=== PATIENT | female | born 1940 | race Caucasian/White ===

== ENCOUNTER 2025-01-27 14:25 | Inpatient (IN) | payer BC ==
[2025-01-27] VITALS (18 sets, daily range): BP systolic 83–108; BP diastolic 51–66; TEMP 98.1–101.4; O2SAT 96–99
[~2025-01-27] VITALS: Ht 152.4 cm; Wt 41.7 kg
[2025-01-27] MEDS: IV NORMAL SALINE 1000 ML BAG IV ONE (14:44)
[2025-01-27] MEDS ORDERED: PIPERACILLIN/TAZOBACTAM/D5W 50 ML IV ONE ×2 (14:53→15:16)
[2025-01-27] MEDS: PIPERACILLIN SODIUM/TAZOBACTAM 3.375 G in IV DEXTROSE 5% 50 ML IV ONE (14:56)
[2025-01-27 15:00] LABS: BASOPHILS % (AUTO) 0.3 % (0.0-2.0); HEMATOCRIT 33.4 % (31.2-41.9); HEMOGLOBIN 10.8 g/dL (10.9-14.3); LYMPHOCYTES # (AUTO) 0.1 K/uL (0.8-4.8); LYMPHOCYTES % (AUTO) 0.5 % (20.5-51.5); MEAN CORPUSCULAR HEMOGLOBIN 26.3 uug (24.7-32.8); MEAN CORPUSCULAR HGB CONC 32 g/dL (32.3-35.6); MEAN CORPUSCULAR VOLUME 81.6 fL (75.5-95.3); MONOCYTES # (AUTO) 0.3 K/uL (0.1-1.30); MONOCYTES % (AUTO) 2.3 % (0.0-11.0); NEUTROPHILS # (AUTO) 11.7 K/uL (1.8-8.9); NEUTROPHILS % (AUTO) 96.9 % (38.5-71.5); PLATELET COUNT (AUTO) 232 K/uL (179-408); RED CELL DISTRIBUTION WIDTH 20.8 % (12.3-17.7)
[2025-01-27 15:25] LABS: CALCIUM 8.8 mg/dL (8.5-10.1); CARBON DIOXIDE 16 mmol/L (21-32); CHLORIDE 104 mmol/L (98-107); CREATININE 3.3 mg/dL (0.6-1.3); GLUCOSE 117 mg/dL (74-106); POTASSIUM 5.1 mmol/L (3.5-5.1); SODIUM SERUM 137 mmol/L (136-145); UREA NITROGEN, BLOOD 78 mg/dL (7-18)
[2025-01-27 15:27] LABS: DIFFERENTIAL COMMENT 1
[2025-01-27 15:37] LABS: ALANINE AMINOTRANSFERASE 228 U/L (14-59); ALBUMIN 2.5 g/dL (3.4-5.0); ALKALINE PHOSPHATASE 366 U/L (50-136); ASPARTATE AMINOTRANSFERASE 254 U/L (15-37); BILIRUBIN,DIRECT 0.7 mg/dL (0.0-0.2); BILIRUBIN,TOTAL 1.2 mg/dL (0.2-1.0); NT-PRO BNP 8796 pg/mL (0-125); TOTAL PROTEIN, SERUM 6.8 g/dL (6.4-8.2)
[2025-01-27] MEDS ORDERED: DIPH1TAB PO (15:49)
[2025-01-27] MEDS ORDERED: ESTR42.5 VG (15:49)
[2025-01-27] MEDS ORDERED: BUPR-319 PO (15:49)
[2025-01-27] MEDS ORDERED: HYDR-4077 PO (15:49)
[2025-01-27] MEDS ORDERED: ZOLP5TAB2 PO (15:49)
[2025-01-27] MEDS ORDERED: LUBI24CA5 PO (15:49)
[2025-01-27] MEDS ORDERED: LEVO175T7 PO (15:49)
[2025-01-27] MEDS ORDERED: TRAZ-182 PO (15:49)
[2025-01-27] MEDS ORDERED: TEST100V5 IM (15:49)
[2025-01-27] MEDS ORDERED: LOSA50TA39 PO (15:49)
[2025-01-27] MEDS ORDERED: FLEC50TA2 PO (15:49)
[2025-01-27] MEDS ORDERED: TEMA30CA PO (15:49)
[2025-01-27] MEDS ORDERED: METO-357 PO (15:49)
[2025-01-27] MEDS ORDERED: RIZA10TA27 PO (15:49)
[2025-01-27] MEDS ORDERED: FINA1TAB PO (15:49)
[2025-01-27] MEDS ORDERED: BUDE3CAP15 PO (15:49)
[2025-01-27] MEDS ORDERED: TAMS-3 PO (15:49)
[2025-01-27] MEDS ORDERED: GABA100C PO (15:49)
[2025-01-27] MEDS ORDERED: TRIA0.2585 PO (15:49)
[2025-01-27] MEDS ORDERED: DENO60DI SUBCUT (15:49)
[2025-01-27] MEDS ORDERED: TOPI50TA PO (15:49)
[2025-01-27] MEDS ORDERED: CELE200C PO (15:49)
[2025-01-27] MEDS ORDERED: IBUP-1957 PO (15:49)
[2025-01-27] MEDS ORDERED: ESCI5TAB PO (15:49)
[2025-01-27] MEDS ORDERED: TRIA60LO14 TP (15:49)
[2025-01-27] MEDS ORDERED: DONE5TAB34 PO (15:49)
[2025-01-27] MEDS ORDERED: EPIN0.3P3 IM (15:49)
[2025-01-27] MEDS ORDERED: CLOP75TA15 PO (15:49)
[2025-01-27] MEDS ORDERED: TADA5TAB2 PO (15:49)
[2025-01-27] MEDS ORDERED: OMEP40CA21 PO (15:49)
[2025-01-27] MEDS ORDERED: HYDR20CR3 TOP (15:49)
[2025-01-27] MEDS ORDERED: FAMO40TA7 PO (15:49)
[2025-01-27 15:51] LABS: ABG BASE EXCESS -8.4 mmol/L (-2.0-3.0); ABG HCO3 13.5 mmol/L (21.0-28.0); ABG PH 7.468 (7.350-7.450); ABG PO2 109.4 mmHg (83.0-108.0); ABG TOTAL HEMOGLOBIN 10.5 G/dL (12.0-16.0); AaDO2 98.4 mmHg; COHb 0.1 % (0.5-1.5); MetHb 0.3 % (0.0-1.5)
[2025-01-27] MEDS ORDERED: ACETAMINOPHEN 650 MG SUPP.RECT RC ONE (15:51)
[2025-01-27] MEDS: ACETAMINOPHEN 650 MG SUPP.RECT RC ONE (15:54)
[2025-01-27 16:32] LABS: *BILIRUBIN,URIN NEGATIVE (NEGATIVE); *BLOOD, URINE 3+ (NEGATIVE); *CLARITY,URINE SLIGHTLY CLOUDY (CLEAR); *COLOR,URINE YELLOW (YELLOW); *KETONES,URINE NEGATIVE (NEGATIVE); *UROBILINOGEN,URINE 0.2 E.U./dl (NORMAL); LEUKOCYTE ESTERASE ,URINE 3+ (NEGATIVE); NITRITE, URINE NEGATIVE (NEGATIVE); PH,URINE 7.5 (5.0-8.0); UGLUCOSE NEGATIVE (NEGATIVE)
[2025-01-27 16:37] LABS: *PROTEIN,URINE 3+ (NEGATIVE)
[2025-01-27] MEDS ORDERED: MAGNESIUM HYDROXIDE 30 ML LIQUID UDC PO PRN (17:00)
[2025-01-27] MEDS ORDERED: REMEDY ESSENTIAL ZINC PASTE 113 GM TP PRN (17:00)
[2025-01-27] MEDS ORDERED: ZOLPIDEM 5 MG TABLET PO PRN (17:00)
[2025-01-27] MEDS ORDERED: ONDANSETRON 4 MG/2 ML VIAL IV PRN (17:00)
[2025-01-27] MEDS ORDERED: ACETAMINOPHEN 325 MG TABLET PO PRN (17:00)
[2025-01-27] MEDS: IV NS 1000 ML 1,000 ML IV PRN (17:43)
[2025-01-27] MEDS: IV D5/ 0.9% NACL 1,000 ML IV PRN (20:12)
[2025-01-27] MEDS ORDERED: PHENYLEPHRINE IV 50 MG in IV NORMAL SALINE 245 ML IV PRN ×2 (20:15→20:30)
[2025-01-27] MEDS ORDERED: LEVALBUTEROL HCL NEB 0.63 MG/3 ML NEBU NEB PRN (20:15)
[2025-01-27] MEDS: PIPERACILLIN/TAZO 2.25 G in IV DEXTROSE 5% 50 ML IV SCH (21:12)
[2025-01-27] MEDS ORDERED: PIPERACILLIN SODIUM/TAZOBACTAM 4.5 G in IV DEXTROSE 5% 50 ML IV SCH (22:00)
[2025-01-27 22:51] LABS: LACTIC ACID 4.9 mmol/L (0.4-2.0)
[2025-01-28] VITALS (32 sets, daily range): BP systolic 82–114; BP diastolic 46–72; TEMP 97.5–100.4; O2SAT 96–99
[2025-01-28 05:06] LABS: BASOPHILS # (AUTO) 0.1 K/UL (0.0-0.2); BASOPHILS % (AUTO) 0.3 % (0.0-2.0); EOSINOPHILS % (AUTO) 0.1 % (0.0-7.0); HEMATOCRIT 25.6 % (31.2-41.9); HEMOGLOBIN 8.4 g/dL (10.9-14.3); LYMPHOCYTES % (AUTO) 10.8 % (20.5-51.5); MEAN CORPUSCULAR HEMOGLOBIN 26.2 uug (24.7-32.8); MEAN CORPUSCULAR HGB CONC 33 g/dL (32.3-35.6); MEAN CORPUSCULAR VOLUME 79.7 fL (75.5-95.3); MONOCYTES % (AUTO) 3.7 % (0.0-11.0); NEUTROPHILS # (AUTO) 23.5 K/uL (1.8-8.9); NEUTROPHILS % (AUTO) 85.1 % (38.5-71.5); PLATELET COUNT (AUTO) 200 K/uL (179-408); RED BLOOD CELL COUNT(AUTO) 3.21 MIL/uL (3.63-4.92); RED CELL DISTRIBUTION WIDTH 20.3 % (12.3-17.7); WHITE BLOOD COUNT (AUTO) 27.6 K/uL (3.8-11.8)
[2025-01-28 05:22] LABS: DIFFERENTIAL COMMENT 1
[2025-01-28 05:33] LABS: ALANINE AMINOTRANSFERASE 223 U/L (14-59); ALBUMIN 1.9 g/dL (3.4-5.0); ALKALINE PHOSPHATASE 198 U/L (50-136); ASPARTATE AMINOTRANSFERASE 154 U/L (15-37); BILIRUBIN,DIRECT 0.3 mg/dL (0.0-0.2); BILIRUBIN,TOTAL 0.6 mg/dL (0.2-1.0); CARBON DIOXIDE 16 mmol/L (21-32); CHLORIDE 109 mmol/L (98-107); CHOLESTEROL 113 mg/dL (<200); CREATININE 3.3 mg/dL (0.6-1.3); GLUCOSE 143 mg/dL (74-106); HDL CHOLESTEROL 13 mg/dL (40-60); MAGNESIUM 2.2 mg/dL (1.8-2.4); PHOSPHOROUS 3.1 mg/dL (2.5-4.9); POTASSIUM 4.6 mmol/L (3.5-5.1); SODIUM SERUM 138 mmol/L (136-145); TOTAL PROTEIN, SERUM 5.8 g/dL (6.4-8.2); TRIGLYCERIDES 352 MG/DL (30-150); UREA NITROGEN, BLOOD 78 mg/dL (7-18)
[2025-01-28 06:04] LABS: *OCCULT BLOOD STOOL NEGATIVE (NEGATIVE)
[2025-01-28] MEDS: PANTOPRAZOLE SODIUM 40 MG VIAL IV SCH (08:51)
[2025-01-28] MEDS: LORAZEPAM 2 MG/1 ML VIAL IV ONE (14:21)
[2025-01-28] MEDS: FUROSEMIDE 40 MG/4 ML VIAL IV ONE (14:34)
[2025-01-28] MEDS: MORPHINE SULFATE 2 MG/1 ML DISP.SYRIN IV PRN (15:03)
[2025-01-28 15:52] LABS: ABG BASE EXCESS -7.7 mmol/L (-2.0-3.0); ABG HCO3 15.1 mmol/L (21.0-28.0); ABG PH 7.435 (7.350-7.450); ABG PO2 93.2 mmHg (83.0-108.0); ABG SITE LEFT RADIAL; ABG TOTAL HEMOGLOBIN 10.1 G/dL (12.0-16.0); AaDO2 97.5 mmHg; COHb 0.3 % (0.5-1.5); MetHb 0.2 % (0.0-1.5)
[2025-01-28] MEDS: HEPARIN/D5W DRIP 500 ML IV PRN (16:25)
[2025-01-28] MEDS: VANCOMYCIN HCL 750 MG in IV DEXTROSE 5% 250 ML IV ONE (16:51)
[2025-01-28] MEDS ORDERED: APIX5TAB PO (17:05)
[2025-01-28] MEDS: MEROPENEM 1 G in IV NORMAL SALINE 100 ML IV SCH (17:09)
[2025-01-28] MEDS: ACETAMINOPHEN 650 MG SUPP.RECT RC PRN (17:21)
[2025-01-28] MEDS ORDERED: HEPARIN SODIUM,PORCINE 5,000 UNITS/ML VIAL IVP ONE (23:45)
[2025-01-29] VITALS (27 sets, daily range): BP systolic 84–173; BP diastolic 42–111; TEMP 97.3–98.6; O2SAT 93–100
[2025-01-29] MEDS: HEPARIN SODIUM,PORCINE 5,000 UNITS/ML VIAL IVP ONE (00:21)
[2025-01-29 06:12] LABS: BASOPHILS # (AUTO) 0.2 K/UL (0.0-0.2); BASOPHILS % (AUTO) 0.6 % (0.0-2.0); EOSINOPHILS # (AUTO) 0.2 K/uL (0.0-0.7); EOSINOPHILS % (AUTO) 0.6 % (0.0-7.0); HEMATOCRIT 26.9 % (31.2-41.9); HEMOGLOBIN 8.8 g/dL (10.9-14.3); LYMPHOCYTES # (AUTO) 0.4 K/uL (0.8-4.8); LYMPHOCYTES % (AUTO) 1.6 % (20.5-51.5); MEAN CORPUSCULAR HEMOGLOBIN 26.2 uug (24.7-32.8); MEAN CORPUSCULAR HGB CONC 33 g/dL (32.3-35.6); MONOCYTES # (AUTO) 1.5 K/uL (0.1-1.30); MONOCYTES % (AUTO) 5.3 % (0.0-11.0); NEUTROPHILS % (AUTO) 91.9 % (38.5-71.5); PLATELET COUNT (AUTO) 191 K/uL (179-408); RED BLOOD CELL COUNT(AUTO) 3.36 MIL/uL (3.63-4.92); RED CELL DISTRIBUTION WIDTH 21.3 % (12.3-17.7); WHITE BLOOD COUNT (AUTO) 28.2 K/uL (3.8-11.8)
[2025-01-29 06:15] LABS: DIFFERENTIAL COMMENT 1
[2025-01-29 06:45] LABS: CALCIUM 7.9 mg/dL (8.5-10.1); CARBON DIOXIDE 17 mmol/L (21-32); CHLORIDE 110 mmol/L (98-107); CREATININE 3.4 mg/dL (0.6-1.3); GLUCOSE 94 mg/dL (74-106); POTASSIUM 4.7 mmol/L (3.5-5.1); SODIUM SERUM 141 mmol/L (136-145); UREA NITROGEN, BLOOD 71 mg/dL (7-18); VANCOMYCIN,RANDOM 10.9 ug/mL (20.0-30.0)
[2025-01-29] MEDS: HEPARIN SODIUM,PORCINE 5,000 UNITS/ML VIAL IV ONE ×2 (07:49→13:32)
[2025-01-29] MEDS: VANCOMYCIN IV 500 MG in IV DEXTROSE 5% 100 ML IV ONE (07:55)
[2025-01-29] MEDS: MEROPENEM 500 MG in IV NORMAL SALINE 50 ML IV SCH (17:41)
[2025-01-29] MEDS ORDERED: FENTANYL CITRATE 100 MCG/2 ML AMPUL ONE (19:43)
[2025-01-29] MEDS ORDERED: MIDAZOLAM HCL 2 MG/2 ML VIAL ONE (19:43)
[2025-01-29] MEDS ORDERED: PROPOFOL 200 MG/20 ML BOTTLE ONE (20:00)
[2025-01-29] MEDS ORDERED: ROCURONIUM BROMIDE 50 MG/5 ML VIAL ONE (20:09)
[2025-01-29] MEDS ORDERED: FENTANYL CITRATE 100 MCG/2 ML AMPUL IV PRN ×2 (22:00)
[2025-01-29] MEDS ORDERED: ONDANSETRON 4 MG/2 ML VIAL IV PRN (22:00)
[2025-01-30] VITALS (24 sets, daily range): BP systolic 130–165; BP diastolic 68–104; TEMP 97.3–98.4; O2SAT 96–98
[2025-01-30 05:03] LABS: BASOPHILS # (AUTO) 0.2 K/UL (0.0-0.2); BASOPHILS % (AUTO) 1.2 % (0.0-2.0); EOSINOPHILS # (AUTO) 0.3 K/uL (0.0-0.7); EOSINOPHILS % (AUTO) 1.6 % (0.0-7.0); HEMATOCRIT 29.8 % (31.2-41.9); HEMOGLOBIN 9.6 g/dL (10.9-14.3); LYMPHOCYTES # (AUTO) 2.6 K/uL (0.8-4.8); LYMPHOCYTES % (AUTO) 15.5 % (20.5-51.5); MEAN CORPUSCULAR HEMOGLOBIN 25.9 uug (24.7-32.8); MEAN CORPUSCULAR HGB CONC 32 g/dL (32.3-35.6); MEAN CORPUSCULAR VOLUME 80.2 fL (75.5-95.3); MONOCYTES # (AUTO) 0.9 K/uL (0.1-1.30); MONOCYTES % (AUTO) 5.1 % (0.0-11.0); NEUTROPHILS % (AUTO) 76.6 % (38.5-71.5); PLATELET COUNT (AUTO) 176 K/uL (179-408); RED BLOOD CELL COUNT(AUTO) 3.72 MIL/uL (3.63-4.92); RED CELL DISTRIBUTION WIDTH 20.9 % (12.3-17.7); WHITE BLOOD COUNT (AUTO) 16.9 K/uL (3.8-11.8)
[2025-01-30 05:12] LABS: DIFFERENTIAL COMMENT 1
[2025-01-30 05:23] LABS: ALANINE AMINOTRANSFERASE 117 U/L (14-59); ALBUMIN 1.9 g/dL (3.4-5.0); ALKALINE PHOSPHATASE 153 U/L (50-136); ASPARTATE AMINOTRANSFERASE 22 U/L (15-37); BILIRUBIN,DIRECT 0.3 mg/dL (0.0-0.2); BILIRUBIN,TOTAL 0.6 mg/dL (0.2-1.0); CALCIUM 8.1 mg/dL (8.5-10.1); CARBON DIOXIDE 20 mmol/L (21-32); CHLORIDE 110 mmol/L (98-107); GLUCOSE 91 mg/dL (74-106); PHOSPHOROUS 3.7 mg/dL (2.5-4.9); POTASSIUM 5.1 mmol/L (3.5-5.1); SODIUM SERUM 142 mmol/L (136-145); TOTAL PROTEIN, SERUM 6.1 g/dL (6.4-8.2); UREA NITROGEN, BLOOD 68 mg/dL (7-18); VANCOMYCIN,RANDOM 15.1 ug/mL (20.0-30.0)
[2025-01-30 15:44] LABS: *OCCULT BLOOD STOOL NEGATIVE (NEGATIVE)
[2025-01-30] MEDS ORDERED: CEFTRIAXONE 2 G VIAL IM SCH (17:00)
[2025-01-30] MEDS: ARGININE/GLUTAMINE/CALCIUM BMB 1 EACH POWD.PACK PO SCH (17:11)
[2025-01-30] MEDS: CEFTRIAXONE 2 G in IV DEXTROSE 5% 100 ML IV SCH (17:40)
[2025-01-31] VITALS (10 sets, daily range): BP systolic 124–165; BP diastolic 80–98; TEMP 97.4–98.4; O2SAT 97–98
[2025-01-31] MEDS: hydrALAZINE HCL 20 MG/1 ML VIAL IV PRN (03:45)
[2025-01-31 05:02] LABS: BASOPHILS # (AUTO) 0.1 K/UL (0.0-0.2); BASOPHILS % (AUTO) 0.7 % (0.0-2.0); EOSINOPHILS # (AUTO) 0.2 K/uL (0.0-0.7); EOSINOPHILS % (AUTO) 1.7 % (0.0-7.0); HEMATOCRIT 31.7 % (31.2-41.9); HEMOGLOBIN 10.6 g/dL (10.9-14.3); LYMPHOCYTES # (AUTO) 1.5 K/uL (0.8-4.8); LYMPHOCYTES % (AUTO) 10.9 % (20.5-51.5); MEAN CORPUSCULAR HEMOGLOBIN 26.3 uug (24.7-32.8); MEAN CORPUSCULAR HGB CONC 33 g/dL (32.3-35.6); MONOCYTES # (AUTO) 0.9 K/uL (0.1-1.30); MONOCYTES % (AUTO) 6.4 % (0.0-11.0); NEUTROPHILS % (AUTO) 80.3 % (38.5-71.5); PLATELET COUNT (AUTO) 195 K/uL (179-408); RED BLOOD CELL COUNT(AUTO) 4.02 MIL/uL (3.63-4.92); RED CELL DISTRIBUTION WIDTH 20.5 % (12.3-17.7); WHITE BLOOD COUNT (AUTO) 13.7 K/uL (3.8-11.8)
[2025-01-31 05:15] LABS: DIFFERENTIAL COMMENT 1
[2025-01-31 05:20] LABS: ALANINE AMINOTRANSFERASE 93 U/L (14-59); ALBUMIN 2.2 g/dL (3.4-5.0); ALKALINE PHOSPHATASE 146 U/L (50-136); ASPARTATE AMINOTRANSFERASE 14 U/L (15-37); BILIRUBIN,DIRECT 0.3 mg/dL (0.0-0.2); BILIRUBIN,TOTAL 0.6 mg/dL (0.2-1.0); CALCIUM 8.4 mg/dL (8.5-10.1); CARBON DIOXIDE 17 mmol/L (21-32); CHLORIDE 108 mmol/L (98-107); GLUCOSE 106 mg/dL (74-106); PHOSPHOROUS 3.1 mg/dL (2.5-4.9); POTASSIUM 4.9 mmol/L (3.5-5.1); SODIUM SERUM 139 mmol/L (136-145); TOTAL PROTEIN, SERUM 6.6 g/dL (6.4-8.2); UREA NITROGEN, BLOOD 54 mg/dL (7-18)
[2025-01-31] MEDS: PANTOPRAZOLE SODIUM 40 MG TABLET.DR PO SCH (08:44)
[2025-01-31] MEDS: METOPROLOL SUCCINATE XL 50 MG TAB.SR.24H PO SCH (17:02)
[2025-01-31] MEDS: HYDROCORTISONE 2.5% CREAM 20 GM TUBE TOP PRN (17:51)
[2025-02-01] VITALS: BP 150/95; TEMP 98; O2SAT 96
[2025-02-01 04:00] VITALS: BP 130/81; TEMP 98.1; O2SAT 97
[2025-02-01 07:13] LABS: BASOPHILS # (AUTO) 0.1 K/UL (0.0-0.2); BASOPHILS % (AUTO) 0.3 % (0.0-2.0); EOSINOPHILS # (AUTO) 0.3 K/uL (0.0-0.7); EOSINOPHILS % (AUTO) 1.6 % (0.0-7.0); HEMATOCRIT 30.8 % (31.2-41.9); HEMOGLOBIN 10.2 g/dL (10.9-14.3); LYMPHOCYTES # (AUTO) 0.9 K/uL (0.8-4.8); LYMPHOCYTES % (AUTO) 4.8 % (20.5-51.5); MEAN CORPUSCULAR HEMOGLOBIN 26.4 uug (24.7-32.8); MEAN CORPUSCULAR HGB CONC 33 g/dL (32.3-35.6); MEAN CORPUSCULAR VOLUME 80.1 fL (75.5-95.3); MONOCYTES # (AUTO) 1.1 K/uL (0.1-1.30); MONOCYTES % (AUTO) 6.1 % (0.0-11.0); NEUTROPHILS % (AUTO) 87.2 % (38.5-71.5); PLATELET COUNT (AUTO) 196 K/uL (179-408); RED BLOOD CELL COUNT(AUTO) 3.85 MIL/uL (3.63-4.92); RED CELL DISTRIBUTION WIDTH 20.8 % (12.3-17.7); WHITE BLOOD COUNT (AUTO) 18.4 K/uL (3.8-11.8)
[2025-02-01 07:14] LABS: DIFFERENTIAL COMMENT 1
[2025-02-01 07:17] LABS: CALCIUM 9.1 mg/dL (8.5-10.1); CARBON DIOXIDE 19 mmol/L (21-32); CHLORIDE 108 mmol/L (98-107); CREATININE 1.9 mg/dL (0.6-1.3); GLUCOSE 102 mg/dL (74-106); POTASSIUM 4.8 mmol/L (3.5-5.1); SODIUM SERUM 140 mmol/L (136-145); UREA NITROGEN, BLOOD 60 mg/dL (7-18)
[2025-02-01 07:52] VITALS: BP 138/88; TEMP 97.6; O2SAT 97
[2025-02-01 08:24] LABS: MAGNESIUM 1.8 mg/dL (1.8-2.4); PHOSPHOROUS 3.9 mg/dL (2.5-4.9)
[2025-02-01 11:47] VITALS: BP 115/75; TEMP 97.7; O2SAT 97
[2025-02-01 16:21] VITALS: BP 121/76; TEMP 97.8; O2SAT 96
[2025-02-01] MEDS ORDERED: ACETAMINOPHEN 325 MG TABLET PO PRN (18:30)
[2025-02-01 20:20] VITALS: BP 110/66; TEMP 97.9; O2SAT 95
[2025-02-02 04:54] VITALS: BP_SYST 132; BP_SYST 147; BP_DIAS 70; BP_DIAS 85; TEMP 97.5; TEMP 99.4; O2SAT 92; O2SAT 97
[2025-02-02 07:21] LABS: BASOPHILS # (AUTO) 0.1 K/UL (0.0-0.2); BASOPHILS % (AUTO) 0.5 % (0.0-2.0); EOSINOPHILS # (AUTO) 0.3 K/uL (0.0-0.7); EOSINOPHILS % (AUTO) 2.1 % (0.0-7.0); HEMATOCRIT 31.3 % (31.2-41.9); HEMOGLOBIN 10.3 g/dL (10.9-14.3); LYMPHOCYTES # (AUTO) 1.2 K/uL (0.8-4.8); LYMPHOCYTES % (AUTO) 8.6 % (20.5-51.5); MEAN CORPUSCULAR HEMOGLOBIN 26.3 uug (24.7-32.8); MEAN CORPUSCULAR HGB CONC 33 g/dL (32.3-35.6); MEAN CORPUSCULAR VOLUME 79.9 fL (75.5-95.3); MONOCYTES # (AUTO) 0.9 K/uL (0.1-1.30); MONOCYTES % (AUTO) 6.4 % (0.0-11.0); NEUTROPHILS # (AUTO) 11.5 K/uL (1.8-8.9); NEUTROPHILS % (AUTO) 82.4 % (38.5-71.5); PLATELET COUNT (AUTO) 229 K/uL (179-408); RED BLOOD CELL COUNT(AUTO) 3.92 MIL/uL (3.63-4.92); RED CELL DISTRIBUTION WIDTH 19.9 % (12.3-17.7)
[2025-02-02 07:29] LABS: ALANINE AMINOTRANSFERASE 56 U/L (14-59); ALBUMIN 2.4 g/dL (3.4-5.0); ALKALINE PHOSPHATASE 116 U/L (50-136); ASPARTATE AMINOTRANSFERASE 13 U/L (15-37); BILIRUBIN,TOTAL 0.5 mg/dL (0.2-1.0); CALCIUM 9.1 mg/dL (8.5-10.1); CARBON DIOXIDE 20 mmol/L (21-32); CHLORIDE 108 mmol/L (98-107); CREATININE 1.9 mg/dL (0.6-1.3); GLUCOSE 107 mg/dL (74-106); MAGNESIUM 1.8 mg/dL (1.8-2.4); PHOSPHOROUS 4.6 mg/dL (2.5-4.9); POTASSIUM 4.7 mmol/L (3.5-5.1); SODIUM SERUM 140 mmol/L (136-145); TOTAL PROTEIN, SERUM 6.8 g/dL (6.4-8.2); UREA NITROGEN, BLOOD 54 mg/dL (7-18)
[2025-02-02 07:34] LABS: DIFFERENTIAL COMMENT 1
[2025-02-02 08:00] VITALS: TEMP 97.7
[2025-02-02 12:00] VITALS: TEMP 97.7
[2025-02-02 16:00] VITALS: BP 117/74; TEMP 97.8; O2SAT 96
[2025-02-02 17:58] LABS: BASOPHILS # (AUTO) 0.1 K/UL (0.0-0.2); EOSINOPHILS # (AUTO) 0.2 K/uL (0.0-0.7); EOSINOPHILS % (AUTO) 2.1 % (0.0-7.0); HEMATOCRIT 31.5 % (31.2-41.9); LYMPHOCYTES # (AUTO) 1.1 K/uL (0.8-4.8); LYMPHOCYTES % (AUTO) 9.4 % (20.5-51.5); MEAN CORPUSCULAR HEMOGLOBIN 25.8 uug (24.7-32.8); MEAN CORPUSCULAR HGB CONC 32 g/dL (32.3-35.6); MEAN CORPUSCULAR VOLUME 81.2 fL (75.5-95.3); MONOCYTES % (AUTO) 8.7 % (0.0-11.0); NEUTROPHILS # (AUTO) 8.9 K/uL (1.8-8.9); NEUTROPHILS % (AUTO) 78.8 % (38.5-71.5); PLATELET COUNT (AUTO) 246 K/uL (179-408); RED BLOOD CELL COUNT(AUTO) 3.87 MIL/uL (3.63-4.92); RED CELL DISTRIBUTION WIDTH 20.2 % (12.3-17.7); WHITE BLOOD COUNT (AUTO) 11.3 K/uL (3.8-11.8)
[2025-02-02 18:07] LABS: DIFFERENTIAL COMMENT 1
[2025-02-02 18:20] LABS: IRON, SERUM 34 ug/dL (50-175)
[2025-02-02 18:35] LABS: FERRITIN 170 ng/mL (8-252)
[2025-02-02 19:00] VITALS: BP 110/68; TEMP 97.6; O2SAT 98
[2025-02-02 19:59] LABS: BAND % (MANUAL) 1 % (0-10); EOSINOPHILS % (MANUAL) 1 % (0-8); LYMPHOCYTES % (MANUAL) 12 % (20-40); MONOCYTES % (MANUAL) 11 % (2-10); NEUTROPHILS % (MANUAL) 75 % (42-75); PLATELET ESTIMATE ADEQUATE
[2025-02-02 20:00] LABS: ANISOCYTOSIS 2+; HYPOCHROMASIA 1+
[2025-02-03] VITALS: BP 107/61; TEMP 97.6; O2SAT 97
[2025-02-03 04:00] VITALS: BP 130/81; TEMP 98.1; O2SAT 98
[2025-02-03 06:49] LABS: BASOPHILS # (AUTO) 0.1 K/UL (0.0-0.2); BASOPHILS % (AUTO) 1.1 % (0.0-2.0); EOSINOPHILS # (AUTO) 0.3 K/uL (0.0-0.7); EOSINOPHILS % (AUTO) 2.8 % (0.0-7.0); HEMATOCRIT 31.9 % (31.2-41.9); HEMOGLOBIN 10.4 g/dL (10.9-14.3); LYMPHOCYTES # (AUTO) 1.2 K/uL (0.8-4.8); MEAN CORPUSCULAR HEMOGLOBIN 26.6 uug (24.7-32.8); MEAN CORPUSCULAR HGB CONC 33 g/dL (32.3-35.6); MEAN CORPUSCULAR VOLUME 81.9 fL (75.5-95.3); MONOCYTES # (AUTO) 1.1 K/uL (0.1-1.30); MONOCYTES % (AUTO) 9.8 % (0.0-11.0); NEUTROPHILS # (AUTO) 8.9 K/uL (1.8-8.9); NEUTROPHILS % (AUTO) 76.3 % (38.5-71.5); PLATELET COUNT (AUTO) 262 K/uL (179-408); RED CELL DISTRIBUTION WIDTH 20.3 % (12.3-17.7); WHITE BLOOD COUNT (AUTO) 11.7 K/uL (3.8-11.8)
[2025-02-03 07:09] LABS: DIFFERENTIAL COMMENT 1
[2025-02-03 07:10] LABS: CALCIUM 8.4 mg/dL (8.5-10.1); CARBON DIOXIDE 21 mmol/L (21-32); CHLORIDE 106 mmol/L (98-107); CREATININE 1.8 mg/dL (0.6-1.3); GLUCOSE 103 mg/dL (74-106); MAGNESIUM 1.9 mg/dL (1.8-2.4); PHOSPHOROUS 4.4 mg/dL (2.5-4.9); POTASSIUM 4.5 mmol/L (3.5-5.1); SODIUM SERUM 138 mmol/L (136-145); UREA NITROGEN, BLOOD 49 mg/dL (7-18)
[2025-02-03 07:30] VITALS: BP 119/74; TEMP 97.7; O2SAT 99
[2025-02-03 08:46] LABS: ANISOCYTOSIS 2+; EOSINOPHILS % (MANUAL) 2 % (0-8); LYMPHOCYTES % (MANUAL) 8 % (20-40); METAMYELOCYTES % 3 % (0-1); MONOCYTES % (MANUAL) 11 % (2-10); MYELOCYTES % 2 % (0-0); NEUTROPHILS % (MANUAL) 74 % (42-75); PLATELET ESTIMATE ADEQUATE
[2025-02-03 11:30] VITALS: BP 131/71; TEMP 97.5; O2SAT 98
[2025-02-03] MEDS ORDERED: ALBUTEROL SULFATE 1.25 MG/3 ML NEBU NEB PRN (13:30)
[2025-02-03 13:48] LABS: *OCCULT BLOOD STOOL NEGATIVE (NEGATIVE)
[2025-02-03] MEDS ORDERED: CEPH500C2 PO (14:49)
[2025-02-03] MEDS ORDERED: ACID1TAB4 PO (14:49)
[2025-02-03 15:41] VITALS: BP 125/80; TEMP 97.7; O2SAT 98
== END 2025-02-03 17:00 | disposition home health service (06) | DRG 853 ==
LOC: ER 14:25 → EDBD 16:19 → CCU 16:19 → TELE3 01-31 20:05 → MEDSURG3 02-03 09:10
PROVIDERS: ADMIT Internal Medicine; ATTEND Internal Medicine
PROC: 05HC33Z Insertion of Infusion Device into Left Basilic Vein, Percutaneous Approach (ICD-10-PCS; 2025-01-29)
PROC: 0T778DZ Dilation of Left Ureter with Intraluminal Device, Via Natural or Artificial Opening Endoscopic (ICD-10-PCS; principal; 2025-01-29 20:00)
DX: A41.50 Gram-negative sepsis, unspecified (principal); G92.8 Other toxic encephalopathy; G93.41 Metabolic encephalopathy; R65.21 Severe sepsis with septic shock; N17.0 Acute kidney failure with tubular necrosis; I26.99 Other pulmonary embolism without acute cor pulmonale; I50.31 Acute diastolic (congestive) heart failure; N17.9 Acute kidney failure, unspecified; N13.6 Pyonephrosis; I47.10 Supraventricular tachycardia, unspecified; Z68.1 Body mass index [BMI] 19.9 or less, adult; D68.59 Other primary thrombophilia; R17 Unspecified jaundice; N20.0 Calculus of kidney; D64.9 Anemia, unspecified; Z87.442 Personal history of urinary calculi; Z96.643 Presence of artificial hip joint, bilateral; Z86.718 Personal history of other venous thrombosis and embolism; R62.7 Adult failure to thrive; B96.20 Unspecified Escherichia coli [E. coli] as the cause of diseases classified elsewhere; I70.0 Atherosclerosis of aorta; K57.30 Diverticulosis of large intestine without perforation or abscess without bleeding; R73.03 Prediabetes; Z74.09 Other reduced mobility; E03.9 Hypothyroidism, unspecified; Z79.890 Hormone replacement therapy; M15.9 Polyosteoarthritis, unspecified; K44.9 Diaphragmatic hernia without obstruction or gangrene; I25.10 Atherosclerotic heart disease of native coronary artery without angina pectoris; Z79.01 Long term (current) use of anticoagulants; G89.29 Other chronic pain; M51.369 Other intervertebral disc degeneration, lumbar region without mention of lumbar back pain or lower extremity pain; R74.01 Elevation of levels of liver transaminase levels; F32.A Depression, unspecified; R41.89 Other symptoms and signs involving cognitive functions and awareness; I11.0 Hypertensive heart disease with heart failure; M81.0 Age-related osteoporosis without current pathological fracture; F41.9 Anxiety disorder, unspecified; I49.1 Atrial premature depolarization
CPT/HCPCS: 36415; 36600; 71045; 74018; 82378; 82803; 83550; 83605; 83690; 83735; 84100; 84443; 84484; 85025; 85610; 85730; 87040; 87077; 87086; 93005; 93307; A4606; A4663; A6213; C1758; G0378; J0360; J0696; J1644; J1938; J2060; J2185; J2250; J2270; J2405; J2470; J2543; J3010; J3370; J3490; J7040; J7042; J7050